=== PATIENT | male | born 1950 | race Caucasian/White ===

== ENCOUNTER 2016-08-03 15:37 | Inpatient (IN) | payer MEDICARE, BC ==
[~2016-08-03] VITALS: Ht 185.4 cm; Wt 139.7 kg
[2016-08-03] MEDS ORDERED: SODIUM CHLORIDE 0.9% 1,000 ML IVB ONE (17:01)
[2016-08-03 17:05] LABS: Basophils # (auto) 0 uL; Basophils % (auto) 0.5 % (0.0-2.0); Eosinophils # (auto) 0.1 uL; Hematocrit 42.8 % (41.0-53.0); Hemoglobin 14.5 g/dL (13.5-17.5); Lymphocytes # (auto) 1.6 uL; Lymphocytes % (auto) 17.3 % (10.0-50.0); Mean Corpuscular Hgb Conc. 33.8 g/dL (32.0-36.0); Mean Corpuscular Volume 79.9 fL (80.0-100.0); Mean Platelet Volume 8.2 fL (7.4-10.4); Monocytes # (auto) 0.6 uL; Monocytes % (auto) 6.1 % (0.0-12.0); Neutrophils # (auto) 6.9 uL; Neutrophils % (auto) 75.1 % (37.0-80.0); Platelet Count (auto) 224 10^3/uL (140-450); Red Cell Distribution Width 15.4 % (11.6-16.0); White Blood Cell 9.2 10^3/uL (4.4-10.8)
[2016-08-03] MEDS ORDERED: LORazepam 0.5 MG TAB PO PRN (17:15)
[2016-08-03] MEDS ORDERED: HYDROcodone-ACET 5/325MG TAB PO PRN (17:15)
[2016-08-03] MEDS ORDERED: ACETAMINOPHEN 500 MG TAB PO PRN (17:15)
[2016-08-03] MEDS ORDERED: PROMETHAZINE HCL 25 MG/ML 1ML IV PRN (17:15)
[2016-08-03] MEDS ORDERED: MORPHINE SULF INJ 2 MG/ML SYRINGE 1ML IV PRN ×2 (17:15)
[2016-08-03] MEDS ORDERED: TEMAZEPAM 15 MG CAP PO PRN (17:15)
[2016-08-03] MEDS ORDERED: NITROGLYCERIN 0.4 MG SL TAB SL PRN (17:15)
[2016-08-03 17:23] LABS: Albumin 3.4 g/dL (3.4-5.0); Anion Gap 10 (5-15); Aspartate Aminotransferase 23 U/L (15-37); BUN/Creatinine Ratio 16.5; Blood Urea Nitrogen 17 mg/dL (7-18); Calcium 8.1 mg/dL (8.5-10.1); Carbon Dioxide 24 mmol/L (21-32); Chloride 112 mmol/L (98-107); GFR African American 93 mL/min; GFR Non-African American 77 mL/min; Glucose 123 mg/dL (74-106); Magnesium 2.3 mg/dL (1.6-2.6); Potassium 3.9 mmol/L (3.5-5.1); Sodium 146 mmol/L (136-145)
[2016-08-03] MEDS ORDERED: ONDANSETRON HCL 4 MG/2 ML VIAL ONE (17:28)
[2016-08-03 17:41] LABS: Alkaline Phosphatase 106 U/L (45-117); Bilirubin, Total 0.3 mg/dL (0.2-1.0); Total Protein 7.3 g/dL (6.4-8.2)
[2016-08-03] MEDS ORDERED: ENALAPRIL MALEATE 2.5 MG TAB PO ONE (17:45)
[2016-08-03] MEDS ORDERED: ONDANSETRON HCL 4 MG/2 ML VIAL IV ONE (18:45)
[2016-08-03 20:22] LABS: B-Type Natriuretic Peptide 7.84 pg/mL (0-100)
[2016-08-03 20:25] VITALS: BP 145/80
[2016-08-03 20:33] LABS: Temperature: 22.9 C (20.0-25.0)
[2016-08-03 21:33] VITALS: BP 165/55
[2016-08-03] MEDS: ATORVASTATIN 20 MG TAB PO SCH ×2 (21:51→21:57)
[2016-08-03] MEDS: SODIUM CHLOR 0.9% PF (SALINE LOCK) 10ML VIAL IV SCH (21:51)
[2016-08-03 22:00] VITALS: BP 145/80
[2016-08-03] MEDS ORDERED: FLUT1INH6 IN (23:53)
[2016-08-03] MEDS ORDERED: DILT-11 PO (23:53)
[2016-08-04] VITALS (8 sets, daily range): BP systolic 125–176; BP diastolic 59–86
[2016-08-04] MEDS: SODIUM CHLOR 0.9% PF (SALINE LOCK) 10ML VIAL IV SCH ×4 (05:37→22:15)
[2016-08-04 07:28] LABS: Cholesterol 182 mg/dL (< 200); HDL Cholesterol 46 mg/dL (40-59); LDL Cholesterol 128 mg/dL (< 100); Triglycerides 72 mg/dL (< 150)
[2016-08-04 08:07] LABS: B-Type Natriuretic Peptide 46.58 pg/mL (0-100)
[2016-08-04 08:08] LABS: Temperature: 22.5 C (20.0-25.0)
[2016-08-04] MEDS: ENOXAPARIN SOD 40 MG/0.4 ML SYRINGE SC SCH (09:28)
[2016-08-04] MEDS: ASPirin 81 mg TAB PO SCH (09:28)
[2016-08-04] MEDS ORDERED: ENALAPRIL MALEATE 2.5 MG TAB PO SCH (10:00)
[2016-08-04 14:26] LABS: Temperature: 22.5 C (20.0-25.0)
[2016-08-04 20:18] LABS: Urine Bilirubin Negative (Negative); Urine Blood TRACE /uL (Negative); Urine Color Yellow (Yellow); Urine Glucose Normal (Normal); Urine Ketone Negative (Negative); Urine Mucus FEW (None Seen); Urine Nitrite Negative (Negative); Urine RBC 4 /hpf (0 - 3); Urine Squamous Epithelial Cell FEW /hpf (<5); Urine Urobilinogen Normal (Negative); Urine pH 5.5 (5.0-8.0)
[2016-08-04] MEDS: ATORVASTATIN 20 MG TAB PO SCH (22:00)
[2016-08-04] MEDS ORDERED: LORazepam 2MG/ML-1ML VIAL IV PRN (22:15)
[2016-08-05 04:50] VITALS: BP 142/75
[2016-08-05 06:55] LABS: Potassium 3.6 mmol/L (3.5-5.1)
[2016-08-05 07:00] LABS: BUN/Creatinine Ratio 22.4; Calcium 8.2 mg/dL (8.5-10.1)
[2016-08-05 08:00] VITALS: BP 148/81
[2016-08-05] MEDS ORDERED: ENA2.5T PO (09:13)
[2016-08-05] MEDS ORDERED: ASPI81CH43 PO (09:13)
[2016-08-05 09:25] VITALS: BP 148/81
[2016-08-05] MEDS: ENOXAPARIN SOD 40 MG/0.4 ML SYRINGE SC SCH (09:36)
[2016-08-05] MEDS: ASPirin 81 mg TAB PO SCH (09:37)
[2016-08-05] MEDS ORDERED: ENALAPRIL MALEATE 2.5 MG TAB PO SCH (10:00)
[2016-08-05 12:37] VITALS: BP_SYST 136; BP_SYST 145; BP_SYST 148; BP_DIAS 78; BP_DIAS 81; BP_DIAS 82
[2016-08-05] MEDS: SODIUM CHLOR 0.9% PF (SALINE LOCK) 10ML VIAL IV SCH (13:52)
[2016-08-05 14:45] VITALS: BP 148/81
== END 2016-08-05 16:35 | disposition home or self-care (01) | DRG 309 ==
LOC: EDBD 15:37 → ER 15:40 → TELE 15:41 → TELE-WESTW 20:01
PROVIDERS: ADMIT Internal Medicine; ATTEND Internal Medicine
DX: I44.0 Atrioventricular block, first degree (principal); Z68.41 Body mass index [BMI] 40.0-44.9, adult; E87.0 Hyperosmolality and hypernatremia; R53.1 Weakness; E66.01 Morbid (severe) obesity due to excess calories; K44.9 Diaphragmatic hernia without obstruction or gangrene; K76.0 Fatty (change of) liver, not elsewhere classified; I10 Essential (primary) hypertension; E83.51 Hypocalcemia; R29.2 Abnormal reflex; E86.0 Dehydration; H81.09 Meniere's disease, unspecified ear; I27.2 Other secondary pulmonary hypertension; Z82.49 Family history of ischemic heart disease and other diseases of the circulatory system; Z87.442 Personal history of urinary calculi; Z90.89 Acquired absence of other organs; Z88.0 Allergy status to penicillin
CPT/HCPCS: 36415; 70450; 71010; 74176; 80048; 80053; 80061; 80307; 81001; 82550; 82607; 82746; 83735; 83880; 84443; 84484; 85025; 85379; 85652; 86141; 93005; 93306; 93886; 96361; 96374; 99291; J2405